=== PATIENT | male | born 1985 | race Caucasian/White ===

== ENCOUNTER 2025-04-11 19:02 | Emergency (ER) | payer OTHER ==
[~2025-04-11] VITALS: Ht 175.3 cm; Wt 85.4 kg
[~2025-04-11 19:02] MED LIST: GENTAMICIN SUL3.5 GM OD
[2025-04-11 19:43] LABS: BASOPHILS 0.6 % (0.2-1.2); EOSINOPHILS 1.0 % (0.8-7.0); LYMPHOCYTES 43.8 % (21.8-53.1); MCH 31.4 PG (25.7-32.2); MCHC 36.0 g/dL (32.3-36.5); MCV 87.3 fL (79.0-92.2); MONOCYTES 9.8 % (5.3-12.2); NEUTROPHILS 44.2 % (34.0-67.9); RBC 5.60 M/uL (4.63-6.08)
[2025-04-11] MEDS ORDERED: LORazepam 2 MG/ML VIAL IV ONE (19:45)
[2025-04-11 20:00] LABS: ALT (SGPT) 75.0 U/L (14-59); AST (SGOT) 34.0 U/L (15-37); GLOMERULAR FILTRATION RATE,EST 76.0 mL/min (>60); PROTEIN, TOTAL 7.9 g/dL (6.4-8.2); UREA NITROGEN 11.0 mg/dL (7-18)
[2025-04-11] MEDS ORDERED: MAGNESIUM OXIDE 400 MG TABLET PO ONE (20:15)
[2025-04-11] MEDS ORDERED: POTASSIUM CHLORIDE 10 MEQ TABCR PO ONE (20:15)
[2025-04-11] MEDS ORDERED: POTASSIUM CHLORIDE 10 MEQ TABCR ONE (20:25)
[2025-04-11] MEDS ORDERED: MAGNESIUM OXIDE 400 MG TABLET ONE (20:28)
[2025-04-11 21:13] VITALS: BP 127/87
== END 2025-04-11 21:15 | disposition home or self-care (01) ==
LOC: ED 19:02
PROVIDERS: Family Medicine
DX: R06.4 Hyperventilation (principal); E87.6 Hypokalemia; E83.42 Hypomagnesemia; Z79.899 Other long term (current) drug therapy; Z87.891 Personal history of nicotine dependence
CPT/HCPCS: 36415; 80053; 82803; 83735; 85025; 96374; 99284-25; A9270; J2060